=== PATIENT | male | born 1965 | race Caucasian/White ===

== ENCOUNTER 2016-12-20 16:18 | Emergency (ER) | payer OTHER ==
[~2016-12-20] VITALS: Ht 182.9 cm; Wt 77.1 kg
[~2016-12-20 16:18] MED LIST: ASPIRIN81 MG PO; CYCLOBENZAPRINE10 M3 PO; GABAPENTIN300 M3 PO; GLIPIZIDE10 MG PO; GLU10 PO; HEP-FORTE1 CAP PO; LIDC TOP; METFORMIN1000 M1 PO; NAPROXEN500 MG PO; PENTOXIFYLLINE400 MG PO; SIMVASTATIN20 M1 PO; ZESTRIL5 MG PO
[2016-12-20 22:50] LABS: BASOPHIL % 0.4 % (0-2); PLATELET COUNT 214 x10^3mcL (130-400)
[2016-12-20 22:56] LABS: RED CELL DISTRIBUTION WIDTH 14.8 % (11.5-14.5)
[2016-12-20 23:03] LABS: microscopic required? NO
[2016-12-20 23:03] LABS: CALCIUM 8.9 mg/dL (8.5-10.1); CARBON DIOXIDE 28.1 mmol/L (21-32); CHLORIDE SERUM 101 mmol/L (98-107); CREATININE SERUM 0.8 mg/dL (0.7-1.3); GFR1 > 60 mL/min; GLUCOSE SERUM 114 mg/dL (74-106); POTASSIUM SERUM 3.6 mmol/L (3.5-5.1); SODIUM SERUM 139 mmol/L (136-145)
[2016-12-20 23:16] LABS: ALBUMIN 3.9 g/dL (3.4-5.0); ALKALINE PHOSPHATASE 102 U/L (46-116); ALT/SGPT 34 U/L (16-63); AMYLASE 61 U/L (25-115); AST/SGOT 14 U/L (15-37); BILIRUBIN TOTAL 0.5 mg/dL (0.20-1.00); CHOLESTEROL 224 mg/dL (<200); HDL CHOLESTEROL 75 mg/dL (40-60); LIPASE 328 IU/L (73-393); MAGNESIUM 1.6 mg/dL (1.8-2.4); T4(THYROXINE) 7.6 ug/dL (4.7-13.3); TOTAL PROTEIN, SERUM 7.6 g/dL (6.4-8.2)
[2016-12-20 23:38] LABS: UA SPECIFIC GRAVITY 1.025 (1.005-1.035); urine erythrocyte NEGATIVE (NEGATIVE)
[2016-12-20 23:52] LABS: AMPHETAMINE QUAL UR NONE DETECTED (NEG <=1000)
[2016-12-21 00:52] VITALS: BP 148/86
== END 2016-12-21 00:52 | disposition home or self-care (01) ==
LOC: ED 16:18
PROVIDERS: Emergency Medicine
DX: S20.211A Contusion of right front wall of thorax, initial encounter (principal); G35 Multiple sclerosis; R06.4 Hyperventilation; E11.9 Type 2 diabetes mellitus without complications; I10 Essential (primary) hypertension; E78.00 Pure hypercholesterolemia, unspecified; W05.0XXA Fall from non-moving wheelchair, initial encounter; Y99.8 Other external cause status; Y93.89 Activity, other specified; Y92.89 Other specified places as the place of occurrence of the external cause
CPT/HCPCS: 36600; 80307; 82962; 83880; G0480; J1885

== ENCOUNTER 2017-12-07 04:01 | Inpatient (IN) | payer OTHER ==
[~2017-12-07] VITALS: Ht 185.4 cm; Wt 83.0 kg
[~2017-12-07 04:01] MED LIST changes: -CYCLOBENZAPRINE10 M3 PO; +CYCLOBENZAPRINE5 MG PO; -GABAPENTIN300 M3 PO; +GABAPENTIN600 M1 PO; -GLIPIZIDE10 MG PO; +GLUCOTROL10 MG PO; +LIPITOR80 MG PO; -SIMVASTATIN20 M1 PO
[2017-12-07 04:09] VITALS: Ht 185.4 cm; Wt 83.0 kg
[2017-12-07 04:39] LABS: BASOPHIL % 0.6 % (0-2); PLATELET COUNT 281 x10^3mcL (130-400); RED CELL DISTRIBUTION WIDTH 13.1 % (11.5-14.5)
[2017-12-07 04:49] LABS: CALCIUM 8.8 mg/dL (8.5-10.1); CARBON DIOXIDE 27.6 mmol/L (21-32); CHLORIDE SERUM 102 mmol/L (98-107); CREATININE SERUM 0.9 mg/dL (0.7-1.3); GFR1 > 60 mL/min; GLUCOSE SERUM 212 mg/dL (74-106); POTASSIUM SERUM 3.9 mmol/L (3.5-5.1); SODIUM SERUM 138 mmol/L (136-145)
[2017-12-07 05:41] LABS: AMPHETAMINE QUAL UR NONE DETECTED (NEG <=1000)
[2017-12-07 07:38] VITALS: BP 148/93
[2017-12-07 08:01] LABS: T3 TOTAL 1.1 ng/mL
[2017-12-07 08:02] LABS: FREE T4 1.12 ng/dL (0.76-1.46); FREE THYROXINE INDEX 2.3 ug/dL (1.4-4.5); T4(THYROXINE) 6.9 ug/dL (4.7-13.3)
[2017-12-07 08:30] LABS: MAGNESIUM 1.7 mg/dL (1.8-2.4); PHOSPHOROUS 2.2 mg/dL (2.5-4.9)
[2017-12-07 09:53] LABS: microscopic required? NO
[2017-12-07 10:02] LABS: UA SPECIFIC GRAVITY 1.015 (1.005-1.035); urine erythrocyte NEGATIVE (NEGATIVE)
[2017-12-07 12:15] VITALS: BP 154/97
[2017-12-07] MEDS ORDERED: ZOLOFT50 MG PO (14:11)
[2017-12-07] MEDS ORDERED: D3-50001 TAB PO (14:13)
[2017-12-07] MEDS ORDERED: VITAMIN B121000 MCG PO (14:15)
[2017-12-07] MEDS ORDERED: COQ-10100 MG PO (14:17)
[2017-12-07] MEDS ORDERED: AMBIEN10 MG PO (14:21)
[2017-12-07] MEDS ORDERED: IBUPROFEN600 MG PO (14:25)
[2017-12-07] MEDS ORDERED: TAMSULOSIN HYD0.4 M1 PO (14:31)
[2017-12-07] MEDS ORDERED: MOBIC7.5 MG PO (14:32)
[2017-12-07] MEDS ORDERED: OMEGA-31000 MG PO (14:34)
[2017-12-07 16:48] VITALS: BP 138/78
[2017-12-07 21:32] VITALS: BP 135/91
[2017-12-08 05:03] VITALS: BP 145/92
[2017-12-08 06:27] LABS: BASOPHIL % 0.5 % (0-2); PLATELET COUNT 281 x10^3mcL (130-400); RED CELL DISTRIBUTION WIDTH 13.4 % (11.5-14.5)
[2017-12-08 07:18] LABS: CALCIUM 8.7 mg/dL (8.5-10.1); CARBON DIOXIDE 26.5 mmol/L (21-32); CHLORIDE SERUM 103 mmol/L (98-107); CREATININE SERUM 0.6 mg/dL (0.7-1.3); GFR1 > 60 mL/min; GLUCOSE SERUM 153 mg/dL (74-106); MAGNESIUM 1.7 mg/dL (1.8-2.4); PHOSPHOROUS 3.7 mg/dL (2.5-4.9); POTASSIUM SERUM 4.5 mmol/L (3.5-5.1); SODIUM SERUM 137 mmol/L (136-145)
[2017-12-08 12:50] VITALS: BP 127/82
[2017-12-08 17:20] VITALS: BP 123/80
[2017-12-08 21:28] VITALS: BP 140/87
[2017-12-09 05:11] VITALS: BP 140/86
[2017-12-09 06:25] LABS: BASOPHIL % 0.3 % (0-2); PLATELET COUNT 270 x10^3mcL (130-400)
[2017-12-09 06:49] LABS: CALCIUM 8.7 mg/dL (8.5-10.1); CARBON DIOXIDE 27.1 mmol/L (21-32); CHLORIDE SERUM 102 mmol/L (98-107); CREATININE SERUM 0.7 mg/dL (0.7-1.3); GFR1 > 60 mL/min; GLUCOSE SERUM 192 mg/dL (74-106); MAGNESIUM 1.8 mg/dL (1.8-2.4); PHOSPHOROUS 3.3 mg/dL (2.5-4.9); POTASSIUM SERUM 3.9 mmol/L (3.5-5.1); SODIUM SERUM 136 mmol/L (136-145)
[2017-12-09 09:36] VITALS: BP 169/64
[2017-12-09 09:40] VITALS: BP 131/79
[2017-12-09 13:07] VITALS: BP 133/92
[2017-12-09] MEDS ORDERED: GABAPENTIN600 M1 PO (14:19)
[2017-12-09] MEDS ORDERED: MECLIZINE HCL12.5 MG PO (14:20)
[2017-12-09] MEDS ORDERED: PRI20 PO (14:20)
[2017-12-09 14:58] VITALS: BP 133/92
== END 2017-12-09 15:55 | disposition home or self-care (01) | DRG 423 ==
LOC: ED 04:01 → DU 06:23
PROVIDERS: Emergency Medicine; Family Medicine
DX: E83.39 Other disorders of phosphorus metabolism (principal); N17.0 Acute kidney failure with tubular necrosis; I69.354 Hemiplegia and hemiparesis following cerebral infarction affecting left non-dominant side; G90.8 Other disorders of autonomic nervous system; S09.8XXA Other specified injuries of head, initial encounter; E11.65 Type 2 diabetes mellitus with hyperglycemia; K21.9 Gastro-esophageal reflux disease without esophagitis; F32.9 Major depressive disorder, single episode, unspecified; N40.0 Benign prostatic hyperplasia without lower urinary tract symptoms; I16.0 Hypertensive urgency; G35 Multiple sclerosis; E11.9 Type 2 diabetes mellitus without complications; W18.39XA Other fall on same level, initial encounter; E83.42 Hypomagnesemia; F19.20 Other psychoactive substance dependence, uncomplicated; Z82.49 Family history of ischemic heart disease and other diseases of the circulatory system; Z91.14 Patient's other noncompliance with medication regimen; Y93.89 Activity, other specified; Y92.090 Kitchen in other non-institutional residence as the place of occurrence of the external cause; Y99.8 Other external cause status
CPT/HCPCS: 82962; 83880; 84439; 97110-GP; 97116-GP; 97530-GP; G0480; J1885; J3010; J3475; J7030; Q0092

== ENCOUNTER 2017-12-29 16:40 | Emergency (ER) | payer OTHER ==
[~2017-12-29] VITALS: Ht 182.9 cm; Wt 79.4 kg
[~2017-12-29 16:40] MED LIST changes: +AMBIEN10 MG PO; +COQ-10100 MG PO; +D3-50001 TAB PO; +IBUPROFEN600 MG PO; +MECLIZINE HCL12.5 MG PO; +MOBIC7.5 MG PO; +OMEGA-31000 MG PO; +PRI20 PO; +TAMSULOSIN HYD0.4 M1 PO; +VITAMIN B121000 MCG PO; +ZOLOFT50 MG PO
[2017-12-29 16:43] VITALS: Ht 182.9 cm; Wt 79.4 kg
[2017-12-29 17:36] LABS: BASOPHIL % 0.3 % (0-2); PLATELET COUNT 210 x10^3mcL (130-400); RED CELL DISTRIBUTION WIDTH 13.3 % (11.5-14.5)
[2017-12-29 17:59] LABS: CALCIUM 10.4 mg/dL (8.5-10.1); CARBON DIOXIDE 21.8 mmol/L (21-32); CREATININE SERUM 2.7 mg/dL (0.7-1.3)
[2017-12-29 18:03] LABS: BILIRUBIN TOTAL 0.99 mg/dL (0.20-1.00)
[2017-12-29 18:04] LABS: ALBUMIN 5.2 g/dL (3.4-5.0); TOTAL PROTEIN, SERUM 9.6 g/dL (6.4-8.2)
[2017-12-29 19:40] LABS: UA SPECIFIC GRAVITY 1.025 (1.005-1.035); microscopic required? YES; urine erythrocyte TRACE (NEGATIVE)
[2017-12-29 19:49] LABS: AMPHETAMINE QUAL UR POSITIVE (NEG <=1000)
[2017-12-29 21:02] VITALS: BP 136/96
== END 2017-12-29 21:02 | disposition home or self-care (01) ==
LOC: ED 16:40
PROVIDERS: Emergency Medicine
DX: K29.70 Gastritis, unspecified, without bleeding (principal); E86.0 Dehydration; E11.65 Type 2 diabetes mellitus with hyperglycemia; I10 Essential (primary) hypertension; E78.00 Pure hypercholesterolemia, unspecified; F15.10 Other stimulant abuse, uncomplicated; T67.5XXA Heat exhaustion, unspecified, initial encounter; X58.XXXA Exposure to other specified factors, initial encounter; Y93.89 Activity, other specified; Y92.89 Other specified places as the place of occurrence of the external cause; Y99.8 Other external cause status
CPT/HCPCS: 83880; J2405; J3490; J7030; Q0092

== ENCOUNTER 2018-02-16 23:56 | Inpatient (IN) | payer OTHER ==
[~2018-02-16] VITALS: Ht 185.4 cm; Wt 82.5 kg
[~2018-02-16 23:56] MED LIST changes: +METFORMIN HCL1000 MG PO; -METFORMIN1000 M1 PO
[2018-02-17 00:53] LABS: BASOPHIL % 0.7 % (0-2); PLATELET COUNT 258 x10^3mcL (130-400); RED CELL DISTRIBUTION WIDTH 14.5 % (11.5-14.5)
[2018-02-17 00:55] LABS: CALCIUM 8.9 mg/dL (8.5-10.1); CARBON DIOXIDE 26.8 mmol/L (21-32); CHLORIDE SERUM 103 mmol/L (98-107); GFR1 > 60 mL/min; GLUCOSE SERUM 185 mg/dL (74-106); POTASSIUM SERUM 4.3 mmol/L (3.5-5.1); SODIUM SERUM 139 mmol/L (136-145)
[2018-02-17 00:59] LABS: ALBUMIN 3.7 g/dL (3.4-5.0); ALKALINE PHOSPHATASE 90 U/L (46-116); ALT/SGPT 29 U/L (16-63); AST/SGOT 18 U/L (15-37); BILIRUBIN TOTAL 0.31 mg/dL (0.20-1.00); TOTAL PROTEIN, SERUM 7.2 g/dL (6.4-8.2)
[2018-02-17 03:05] VITALS: BP 132/84
[2018-02-17 03:29] LABS: MAGNESIUM 1.7 mg/dL (1.8-2.4); PHOSPHOROUS 3.4 mg/dL (2.5-4.9)
[2018-02-17 03:34] LABS: CHOLESTEROL/HDL RATIO 3.5
[2018-02-17 03:36] LABS: T3 TOTAL 0.8 ng/mL
[2018-02-17 03:41] LABS: FREE T4 0.9 ng/dL (0.76-1.46); FREE THYROXINE INDEX 2.9 ug/dL (1.4-4.5)
[2018-02-17 05:50] VITALS: BP 126/79
[2018-02-17 08:00] VITALS: BP 134/91
[2018-02-17 12:08] VITALS: BP 130/83
[2018-02-17 13:01] LABS: microscopic required? NO
[2018-02-17 13:35] LABS: UA SPECIFIC GRAVITY 1.025 (1.005-1.035); urine erythrocyte NEGATIVE (NEGATIVE)
[2018-02-17 14:00] LABS: AMPHETAMINE QUAL UR NONE DETECTED (NEG <=1000)
[2018-02-17 17:27] VITALS: BP 120/80
[2018-02-17 21:16] VITALS: BP 124/76
[2018-02-18 05:47] VITALS: BP 148/85
[2018-02-18 06:10] LABS: BASOPHIL % 0.5 % (0-2); PLATELET COUNT 249 x10^3mcL (130-400)
[2018-02-18 06:23] LABS: CALCIUM 8.7 mg/dL (8.5-10.1); CARBON DIOXIDE 28.2 mmol/L (21-32); CHLORIDE SERUM 103 mmol/L (98-107); CREATININE SERUM 0.7 mg/dL (0.7-1.3); GFR1 > 60 mL/min; GLUCOSE SERUM 150 mg/dL (74-106); MAGNESIUM 1.9 mg/dL (1.8-2.4); SODIUM SERUM 138 mmol/L (136-145)
[2018-02-18 06:58] LABS: RED CELL DISTRIBUTION WIDTH 14.6 % (11.5-14.5)
[2018-02-18 09:43] VITALS: BP 147/93
[2018-02-18] MEDS ORDERED: ELA50 PO (12:11)
[2018-02-18] MEDS ORDERED: COL100 PO (12:12)
[2018-02-18] MEDS ORDERED: MECLIZINE HCL12.5 MG PO (12:12)
[2018-02-18 14:19] VITALS: BP 134/93
[2018-02-18 17:42] VITALS: BP 126/90
[2018-02-18 17:45] VITALS: BP 126/90
== END 2018-02-18 21:42 | DRG 48 ==
LOC: ED 23:56 → DU 02-17 02:04
PROVIDERS: Emergency Medicine; Family Medicine
DX: G90.8 Other disorders of autonomic nervous system (principal); N17.0 Acute kidney failure with tubular necrosis; K85.90 Acute pancreatitis without necrosis or infection, unspecified; S09.90XA Unspecified injury of head, initial encounter; E11.65 Type 2 diabetes mellitus with hyperglycemia; F33.1 Major depressive disorder, recurrent, moderate; G35 Multiple sclerosis; E78.00 Pure hypercholesterolemia, unspecified; W18.39XA Other fall on same level, initial encounter; F41.1 Generalized anxiety disorder; E83.42 Hypomagnesemia; E86.0 Dehydration; R82.4 Acetonuria; E78.5 Hyperlipidemia, unspecified; I10 Essential (primary) hypertension; Z86.73 Personal history of transient ischemic attack (TIA), and cerebral infarction without residual deficits; Z82.49 Family history of ischemic heart disease and other diseases of the circulatory system; Y93.89 Activity, other specified; Y92.89 Other specified places as the place of occurrence of the external cause; Y99.8 Other external cause status
CPT/HCPCS: 82962; 83880; 84439; 97110-GP; 97116-GP; 97530-GP; J1885; J2405; J7030; Q0092

== ENCOUNTER 2018-05-20 09:32 | Emergency (ER) | payer OTHER ==
[~2018-05-20] VITALS: Ht 182.9 cm; Wt 83.0 kg
[~2018-05-20 09:32] MED LIST changes: +COL100 PO; +ELA50 PO
[2018-05-20 09:37] VITALS: Ht 182.9 cm; Wt 83.0 kg
[2018-05-20 12:13] VITALS: BP 141/90
== END 2018-05-20 12:13 | disposition home or self-care (01) ==
LOC: ED 09:32
DX: S20.219A Contusion of unspecified front wall of thorax, initial encounter (principal); I10 Essential (primary) hypertension; E11.9 Type 2 diabetes mellitus without complications; E78.00 Pure hypercholesterolemia, unspecified; X58.XXXA Exposure to other specified factors, initial encounter; Y93.89 Activity, other specified; Y92.89 Other specified places as the place of occurrence of the external cause; Y99.8 Other external cause status
CPT/HCPCS: J2270

== ENCOUNTER 2019-03-14 18:20 | Emergency (ER) | payer OTHER ==
[~2019-03-14] VITALS: Ht 182.9 cm; Wt 78.0 kg
[2019-03-14 19:02] VITALS: Ht 182.9 cm; Wt 78.0 kg
[2019-03-14 19:52] VITALS: BP 145/85
== END 2019-03-14 19:52 | disposition home or self-care (01) ==
LOC: ED 18:20
DX: M65.342 Trigger finger, left ring finger (principal); I10 Essential (primary) hypertension; E11.9 Type 2 diabetes mellitus without complications; G35 Multiple sclerosis; E78.00 Pure hypercholesterolemia, unspecified; Z86.73 Personal history of transient ischemic attack (TIA), and cerebral infarction without residual deficits

== ENCOUNTER 2019-11-09 07:38 | Inpatient (IN) | payer OTHER ==
[~2019-11-09] VITALS: Ht 182.9 cm; Wt 76.2 kg
[2019-11-09 08:03] VITALS: Ht 182.9 cm; Wt 76.2 kg
[2019-11-09 09:49] LABS: BASOPHIL % 0.4 % (0-2); PLATELET COUNT 252 x10^3mcL (130-400); RED CELL DISTRIBUTION WIDTH 13.1 % (11.5-14.5)
[2019-11-09 10:19] LABS: CALCIUM 8.6 mg/dL (8.5-10.1); CARBON DIOXIDE 28.7 mmol/L (21-32); CHLORIDE SERUM 102 mmol/L (98-107); CREATININE SERUM 0.9 mg/dL (0.7-1.3); GFR1 > 60 mL/min; GLUCOSE SERUM 163 mg/dL (74-106); POTASSIUM SERUM 3.9 mmol/L (3.5-5.1); SODIUM SERUM 138 mmol/L (136-145)
[2019-11-09 10:24] LABS: ALKALINE PHOSPHATASE 71 U/L (46-116); ALT/SGPT 19 U/L (16-63); AST/SGOT 11 U/L (15-37); BILIRUBIN TOTAL 0.55 mg/dL (0.20-1.00); LIPASE 403 IU/L (73-393); TOTAL PROTEIN, SERUM 7.3 g/dL (6.4-8.2)
[2019-11-09 10:25] LABS: ALBUMIN 3.3 g/dL (3.4-5.0)
[2019-11-09 13:26] VITALS: BP 123/82
[2019-11-09 14:03] LABS: microscopic required? NO
[2019-11-09 14:31] LABS: UA SPECIFIC GRAVITY 1.025 (1.005-1.035); urine erythrocyte NEGATIVE (NEGATIVE)
[2019-11-09] MEDS ORDERED: IBU800 M2 PO (15:25)
[2019-11-09] MEDS ORDERED: ASPIR 8181 MG PO (15:26)
[2019-11-09] MEDS ORDERED: ZYR10 PO (15:27)
[2019-11-09] MEDS ORDERED: NESINA25 MG PO (15:27)
[2019-11-09] MEDS ORDERED: GRALISE600 MG PO (15:28)
[2019-11-09] MEDS ORDERED: ZOL100 PO (15:29)
[2019-11-09] MEDS ORDERED: FORTAMET500 M1 PO (15:30)
[2019-11-09] MEDS ORDERED: GLIPIZIDE XL10 M1 PO (15:31)
[2019-11-09 17:24] VITALS: BP 121/77
[2019-11-09 19:25] VITALS: BP 124/71
[2019-11-10 04:21] VITALS: BP 111/71
[2019-11-10 05:07] VITALS: BP 129/84
[2019-11-10 06:35] LABS: BASOPHIL % 0.3 % (0-2); PLATELET COUNT 222 x10^3mcL (130-400)
[2019-11-10 06:53] LABS: CALCIUM 8.3 mg/dL (8.5-10.1); CARBON DIOXIDE 25.1 mmol/L (21-32); CHLORIDE SERUM 107 mmol/L (98-107); CREATININE SERUM 0.6 mg/dL (0.7-1.3); GFR1 > 60 mL/min; GLUCOSE SERUM 156 mg/dL (74-106); POTASSIUM SERUM 3.8 mmol/L (3.5-5.1); SODIUM SERUM 140 mmol/L (136-145)
[2019-11-10 09:07] VITALS: BP 129/77
[2019-11-10 12:31] VITALS: BP 129/77
== END 2019-11-10 13:05 | disposition home or self-care (01) | DRG 389 ==
LOC: ED 07:38 → MU 11:45
PROVIDERS: Emergency Medicine; ADMIT Student in an Organized Health Care Education/Training Program
DX: K56.600 Partial intestinal obstruction, unspecified as to cause (principal); E44.0 Moderate protein-calorie malnutrition; E86.0 Dehydration; G35 Multiple sclerosis; E11.9 Type 2 diabetes mellitus without complications; I10 Essential (primary) hypertension; Z79.84 Long term (current) use of oral hypoglycemic drugs; Z79.82 Long term (current) use of aspirin; Z79.1 Long term (current) use of non-steroidal anti-inflammatories (NSAID); Z86.73 Personal history of transient ischemic attack (TIA), and cerebral infarction without residual deficits
CPT/HCPCS: 82962; 87046; 87046-59; G0378; J1170; J2270; J2405; J3010; J7030; J7042; Q0092; Q9967